=== PATIENT | female | born 1965 | race Caucasian/White ===

== ENCOUNTER 2017-09-26 11:18 | Emergency (ER) | payer MEDICAID ==
[~2017-09-26] VITALS: Ht 149.9 cm; Wt 72.6 kg
[2017-09-26 11:31] VITALS: BP_SYST 193
--- NOTE | 2017-09-26 11:37 | NUR ---
Pt placed in bed 7
--- NOTE | 2017-09-26 11:40 | NUR ---
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
[2017-09-26] MEDS ORDERED: KETOROLAC TROMETHAMINE 30 MG VIAL IVP ONE (11:45)
--- NOTE | 2017-09-26 11:45 | NUR ---
Dr Patrick at bedside examining patient
--- NOTE | 2017-09-26 12:15 | NUR ---
Dr Patrick notified pt's BP is elevated 223/110, order for BP medication received
[2017-09-26 12:20] LABS: BASOPHILS # (AUTO) 0.1 K/uL (0.0-0.2); BASOPHILS % (AUTO) 0.5 % (0.0-2.0); EOSINOPHILS # (AUTO) 0.5 K/uL (0.0-0.4); HEMATOCRIT 27.1 % (36-48); HEMOGLOBIN 9.1 g/dL (12.0-16.0); LYMPHOCYTES # (AUTO) 1.6 K/uL (1.0-5.5); LYMPHOCYTES % (AUTO) 12.9 % (20.5-51.5); MEAN CORPUSCULAR HEMOGLOBIN 31 pg (27-31); MEAN CORPUSCULAR HGB CONC 34 % (32-36); MEAN CORPUSCULAR VOLUME 92 fL (79.0-98.0); MONOCYTES # (AUTO) 0.9 K/uL (0.0-1.0); MONOCYTES % (AUTO) 7.3 % (1.7-9.3); NEUTROPHILS # (AUTO) 9.3 K/uL (1.8-7.7); NEUTROPHILS % (AUTO) 75.3 % (40.0-70.0); PLATELET COUNT (AUTO) 323 K/uL (130-430); RED BLOOD CELL COUNT(AUTO) 2.94 MIL/uL (4.2-6.2); RED CELL DISTRIBUTION WIDTH 14.3 % (9.0-15.0); WHITE BLOOD COUNT (AUTO) 12.4 K/uL (4.8-10.8)
--- NOTE | 2017-09-26 12:25 | NUR ---
Pt went to bathroom and BP decreased to 189/89, Dr Patrick notified,Dr Patrick agreeable to administer clonidine 0.2mg PO for blood pressure control, will cont to monitor.
[2017-09-26 12:31] LABS: CALCIUM 7.8 mg/dL (8.4-11.0); CREATININE 7.13 mg/dL (0.55-1.30); POTASSIUM 5.7 mmol/L (3.5-5.1)
[2017-09-26 12:36] LABS: ALBUMIN 3.2 g/dL (3.4-4.8); TOTAL BILIRUBIN 0.3 mg/dL (0.0-1.0); URIC ACID 8.9 mg/dL (2.4-7.0)
[2017-09-26] MEDS ORDERED: cloNIDine HCL 0.1 MG TABLET PO ONE (13:15)
[2017-09-26 13:58] VITALS: BP_SYST 154
--- NOTE | 2017-09-26 13:59 | NUR ---
Patient given written and verbal discharge instructions and verbalizes understanding. ER MD discussed with patient the results and treatment provided. Patient in stable condition. ID arm band removed. IV catheter removed intact and dressing applied, no active bleeding. Rx of Colchicine, Indomethacin, Robitussin, Zithromax given. Patient educated on pain management and to follow up with PMD. Pain Scale 3/10 tolerable for pt. Opportunity for questions provided and answered. Medication side effect fact sheet provided.
== END 2017-09-26 13:56 | disposition home or self-care (01) ==
LOC: SED 11:18
DX: M10.071 Idiopathic gout, right ankle and foot (principal); J20.9 Acute bronchitis, unspecified; I10 Essential (primary) hypertension; Z87.39 Personal history of other diseases of the musculoskeletal system and connective tissue
CPT/HCPCS: 36415; 80053; 84550; 85025; 96374; 99284; J1885; 96375; 96376; 99285; J7030